=== PATIENT | male | born 1995 | race Hispanic/Latino ===

== ENCOUNTER 2021-08-08 13:53 | Outpatient (AMBR) | payer MEDICAID, SELFPAY ==
--- NOTE | 2021-08-08 14:27 | PT.OIERPT ---
PT OP Initial Eval Patient Information Visit Reasons: left knee Medical Diagnosis: M25.562 Treatment Dx #1: Left Knee Pain Treatment Dx #2: Left Knee Mobility Deficits Date of Onset: March 2021 Initial Assessment Subjective Pt is a 26 y/o male c/o left knee pain since he fell off the trailer March 2021. Pt's most recent MRI found complete tear in the medial collateral ligament, torn medial meniscus, and partially torn ACL. Pt c/o 7/10 pain with all activities. Pt has limitation with walking, bending, chores, lifting, work duties, squatting, self care, and performing recreational activities. Pt is very afraid of physical therapy due to possibly causing him more harm. Pt will like a second opinion prior to attempting any form of physical therapy. Objective Left Knee AROM: - 9 deg to 100 deg with pain Left Knee MMTs Quads: 3-/5 Hs: 3-/5 Left Hip MMTs Glute Med: 3-/5 Glute Max: 3-/5 SLS: unable Assessment Pt demonstrate decrease knee ROM, strength, and increase pain consistent with MRI findings of multiple tears within the knee. At this time Pt will not benefit from physical therapy due to the extent of the injury and known tears. Pt is very guarded with his knee and resistance to movement due to pain. Pt advised to follow up with provider for further consultation. Pt was evaluated and d/c from care, thank you for your referrals. Short Term and [facility] Goals 1) Eval and D/C 2) Follow up with provider Treatment Plan Frequency and Duration 1x Certification Dates: 08/08/21 to 11/07/21 Office Procedures PT Treatments PT Date of Service: 08/08/21 OP PT Eval Mod Complex 30 minutes: Yes
== END 2021-08-15 23:59 | disposition home or self-care (01) ==
PROVIDERS: PCP Physician Assistant Medical; Referring Provider Physician Assistant Medical; Visit Provider Specialist
DX: M25.562 Pain in left knee (principal); R26.2 Difficulty in walking, not elsewhere classified
CPT/HCPCS: 97162